=== PATIENT | female | born 1980 | race Two or more races ===

== ENCOUNTER 2021-04-03 18:21 | Emergency (ER) | payer OTHER ==
[~2021-04-03] VITALS: Ht 175.3 cm; Wt 83.9 kg
[2021-04-03] MEDS ORDERED: LIPITOR20 MG PO (18:33)
[2021-04-03] MEDS ORDERED: TOPROL XL25 M1 (18:33)
== END 2021-04-03 20:34 | disposition home or self-care (01) ==
LOC: ER 18:21
DX: M94.0 Chondrocostal junction syndrome [Tietze] (principal); I10 Essential (primary) hypertension; Z88.2 Allergy status to sulfonamides

== ENCOUNTER → 2021-04-03 | Emergency (ER) | payer OTHER ==
[~2021-04-03] MED LIST: LIPITOR20 MG PO; TOPROL XL25 M1
== END | disposition home or self-care (01) ==
LOC: ER 21:06
DX: M94.0 Chondrocostal junction syndrome [Tietze] (principal); Z88.2 Allergy status to sulfonamides